=== PATIENT | female | born 1950 | race Caucasian/White ===

== ENCOUNTER 2023-09-29 12:14 | Emergency (ER) | payer MEDICARE, SELFPAY ==
[2023-09-29 12:15] VITALS: BP 188/81; PULSE 64; RESP 15; TEMP 36.4; O2SAT 100; BMI 25.2
--- NOTE | 2023-09-29 12:31 | EX.ED.GENINJ ---
HPI <RODNEY Santacruz - Last Filed: 09/29/23 12:36> History of Present Illness Chief Complaint: Bite Narrative Narrative: Patient presenting today due to a tick bite. She reports that yesterday morning she was outside setting up her solar lights. She did not take a shower again until this morning when she noticed a tick on her left upper abdomen. She tried to pull this out with her fingers. However, she reports that she thinks she left a piece behind and is concerned that she could develop Lyme's disease. She denies any fevers or chills. PFSH <RODNEY Santacruz - Last Filed: 09/29/23 12:36> PFSH Home Medications albuterol sulfate 90 mcg/actuation aerosol inhaler 1 - 2 puff inhalation Q4H PRN PRN Wheezing ##1 07/28/17 [Rx Last Taken Unknown] guaifenesin 1,200 mg tablet, extended release 12 hr 1,200 mg PO BID ##14 07/28/17 [Rx Last Taken Unknown] Allergy/AdvReac Type Severity Reaction Status Date / Time Penicillins Allergy Hives Verified 09/29/23 12:28 acetaminophen [From [place]] AdvReac Vomiting Verified 09/29/23 12:28 hydrocodone [From [place]] AdvReac Vomiting Verified 09/29/23 12:28 Social History Smoking Status: Former smoker ROS <RODNEY Santacruz - Last Filed: 09/29/23 12:36> ROS ED Constitutional Constitutional ED: Denies chills or fever(s) Cardiovascular Cardiovascular: Denies chest pain Respiratory/Chest Respiratory/Chest: Denies cough or dyspnea Gastrointestinal Gastrointestinal: Denies abdominal pain, nausea or vomiting Musculoskeletal Musculoskeletal: Denies arthralgias or myalgias Integumentary Denies rash Neurologic Neurologic: Denies weakness EXAM <RODNEY Santacruz - Last Filed: 09/29/23 12:36> Physical Exam Const Vital Signs: 09/29/23 12:15 09/29/23 12:37 Temperature 97.5 F L 97.9 F Temperature Source Temporal Pulse Rate 64 64 Respiratory Rate 15 16 Blood Pressure 188/81 H 184/78 H Blood Pressure Mean 116 113 Pulse Ox 100 100 Oxygen Delivery Method Room Air Positive well nourished, well developed and no apparent distress General Appearance ED: well developed HEENT Reports normocephalic and head/scalp atraumatic Mouth ED: Yes moist mucous membranes normal Eyes PERRL and EOMs intact bilaterally Neck full ROM and supple Chest Wall inspection of chest normal Resp normal respiratory effort and clear to auscultation bilaterally Cardio regular rate and regular rhythm GI soft to palpation, non-tender, non-distended and no masses GI Narrative: Small erythemic bite kenzie to the left upper abdomen, very small black spot in the middle of the bite kenzie which could represent a piece of the tick. Back/Spine normal ROM and normal to inspection Extremity normal to inspection and full ROM Neuro oriented x3, CN's II-XII intact bilaterally, moves all extremities, no focal motor deficits and no sensory deficits noted Sensorium / Orientation: awake and alert Psych mental status grossly normal and thought process normal <Dr. Bruce Brewer MD - Last Filed: 09/29/23 12:52> Physical Exam Const Vital Signs: 09/29/23 12:15 09/29/23 12:37 Temperature 97.5 F L 97.9 F Temperature Source Temporal Pulse Rate 64 64 Respiratory Rate 15 16 Blood Pressure 188/81 H 184/78 H Blood Pressure Mean 116 113 Pulse Ox 100 100 Oxygen Delivery Method Room Air [facility] <RODNEY Santacruz - Last Filed: 09/29/23 12:36> [facility] Narrative Medical decision making narrative: Patient presenting today due to a tick bite that likely occurred yesterday morning when she was outside. She noticed it this morning while in the shower. She is unable to tell me if the tick was engorged or not. However, given it was on her for around 24 hours she will be treated with doxycycline. There is a very small piece of the tick left behind, however, it will cause more harm to try to take this out. Encouraged that she follow-up with her PCP. She will be discharged home in stable condition and is comfortable with plan. Return instructions given. <Dr. Bruce Brewer MD - Last Filed: 09/29/23 12:52> [facility] Treatment and Re-Evaluation Narrative: I have personally performed a face to face assessment of the patient and have reviewed the MAXIMO Note. I performed a substantive portion of the visit including all aspects of the following. My mcnulty findings include: History is this morning in shower patient found a tick attached to her left upper abdomen inframammary area. She estimates it was there for may be 24 hours or so, probably received it from outside yesterday. She states she used tweezers and removed the tick, she states it looks small unknown if it was swollen or not. She states she admits that she was digging at the site trying to remove every little speck of black discoloration quite a bit and now it is a little sore but it was not before that. Exam is superficially ulcerated lesion from the patient excoriating the epidermis left upper abdominal wall. It is mildly erythematous but there is no bleeding. There is a small speck of black discoloration in the center of it. Medical Decison Making patient reassured. Cutting this small dot out is not necessary. Cleansed and dressed with bacitracin by nursing, she was given a single dose of doxycycline 200 mg for prophylaxis against Lyme which is prevalent in this area and ticks. Other additions or changes: [None] Discharge Plan Triage Chief Complaint: Bite ED Midlevel Provider: Rena Jimenez ED Provider: Bruce Brewer Dx/Rx/DC Orders Clinical Impression: Tick bite of abdomen Instructions: ED Tick Bite, Antibiotic Treatment Prescriptions: No Action albuterol sulfate 1 INHALER inhaler 1 - 2 puff INHALATION Q4H PRN PRN (Reason: Wheezing) Qty: 1 0RF guaifenesin 1,200 MG tablet 1,200 mg PO BID Qty: 14 0RF Primary Care Provider: Elijah Deleon Referrals: Elijah Deleon MD [Primary Care Provider] - 5-7 Days Activity Restrictions/Additional Instructions: Follow-up with your PCP and return for any worsening of your symptoms. Disposition Disposition: Home, Self Care Discharge Date/Time: 09/29/23 12:43
[2023-09-29 12:37] VITALS: BP 184/78; PULSE 64; RESP 16; TEMP 36.6; O2SAT 100
[2023-09-29] MEDS: Doxycycline 100 MG CAPSULE 200 MG PO (12:40)
--- OUTSIDE RECORDS SUMMARY | 2023-09-29 12:44 | XMS RPT_ITS | CCD ---
Author Name Unknown Address [address] [place] [address] Organization [facility] Care Team Providers Care Flour Inspector Name Role Phone JIM PATEL Unavailable Unavailable JIM PATEL Unavailable Unavailable JIM PATEL Unavailable Unavailable Pancho MOORE, Elijah Jiménez Primary Care Provider Allergies Allergy Classification Reported Allergen(s) Allergy Type Date of Onset Reaction(s) Facility (1 source) Acetaminophen / HYDROcodone Drug Allergy 07-18-2017 Vomiting [facility] Work Phone: (1 source) Penicillins Drug Allergy 08-19-2009 Hives [facility] Work Phone: Medications Completed/Discontinued Medications Medication Drug Class(es) Dates Sig (Normalized) Sig (Original) aspirin 81 mg delayed release oral tablet (1 source) Platelet Aggregation Inhibitor, Nonsteroidal Anti-inflammatory Drug Start: 08-19-2009 aspirin(ECOTRIN LOW STRENGTH 81 MG TAB) Take one(1) tablet daily. 0 08/19/2009 Active Problems Active Problems Problem Classification Problem Date Documented Date Episodic/Chronic Diverticulosis and diverticulitis (1 source) Diverticulosis of colon; Translations: [Diverticulosis of large intestine without perforation or abscess without bleeding] 12-19-2017 Chronic Esophageal disorders (1 source) Gastroesophageal reflux disease without esophagitis; Translations: [Gastro-esophageal reflux disease without esophagitis] Onset: 12-19-2017 12-19-2017 Chronic Hemorrhoids (1 source) Internal hemorrhoids; Translations: [Other hemorrhoids] 12-19-2017 Episodic Menopausal disorders (1 source) Primary ovarian failure; Translations: [Other primary ovarian failure] Onset: 12-19-2017 12-19-2017 Chronic Residual codes; unclassified (1 source) Family history of malignant neoplasm of gastrointestinal tract; Translations: [Family history of malignant neoplasm of digestive organs] 12-19-2017 Episodic Past or Other Problems Problem Classification Problem Date Documented Da te Episodic/Chronic Other aftercare (1 source) Drug therapy finding; Translations: [Other exterminator (current) drug therapy] Onset: 12-19-2017 12-19-2017 Episodic Other aftercare (4 sources) Patient encounter status; Translations: [Other exterminator (current) drug therapy] Onset: 12-19-2017 10-01-2019 Episodic Other bone disease and musculoskeletal deformities (1 source) Senile osteopenia; Translations: [Other specified disorders of bone density and structure, unspecified site] Onset: 01-20-2018 01-20-2018 Episodic Other skin disorders (1 source) Calcinosis cutis; 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] Onset: 12-25-2017 10-01-2019 Episodic Residual codes; unclassified (1 source) Family history of cancer of colon; Translations: [Family history of malignant neoplasm of digestive organs] Onset: 01-21-2018 10-01-2019 Episodic Screening and history of mental health and substance abuse codes (1 source) Ex-smoker; Translations: [Personal history of nicotine dependence] Onset: 08-31-2020 08-31-2020 Episodic Spondylosis; intervertebral disc disorders; other back problems (4 sources) Dorsalgia, unspecified; Translations: [Muscle spasm of back] Onset: 07-18-2017 Episodic Sprains and strains (1 source) Sprain of unspecified parts of thorax, initial encounter; Translations: [Sprain of unspecified parts of thorax, initial encounter] Onset: 07-18-2017 Episodic Encounters Encounter Date Encounter Type Care Provider Facility Start: 01-24-2023 ambulatory Lelia Lezama MA [facility] [address] [place] Procedures Date Procedure Procedure Detail Performing Clinician Start: 02-03-2018 Colonoscopy Lelia west [place] Plan of Treatment Date Care Activity Detail Author Start: 09-30-2024 LIPID SCREEN LIPID SCREEN [facility] Start: 09-11-2024 DIABETES SCREEN DIABETES SCREEN [facility] Start: 03-22-2023 Influenza vaccination INFLUENZA (#1) [facility] Start: 02-03-2023 Colonoscopy COLONOSCOPY [facility] Start: 02-03-2023 COLORECTAL CANCER SCREENING COLORECTAL CANCER SCREENING [facility] Start: 07-22-2022 ADVANCE DIRECTIVE DISCUSSION ADVANCE DIRECTIVE DISCUSSION [facility] Start: 07-22-2022 DEPRESSION ASSESSMENT DEPRESSION ASS ESSMENT [facility] Start: 12-19-2018 PNEUMOCOCCAL: 65+ (2 - PPSV23 if available, else PCV20) PNEUMOCOCCAL: 65+ (2 - PPSV23 if available, else PCV20) [facility] Start: 02-12-2002 SHINGRIX VACCINE (1 of 2) SHINGRIX V ACCINE (1 of 2) [facility] Start: 02-12-1997 COLOGUARD (FIT-DNA) COLOGUARD (FIT-D NA) [facility] Start: 02-12-[address] COLONOGRAPHY [facility] Start: 02-12-1997 FECAL OCCULT BLOOD FECAL OCCULT BLOO D [facility] Start: 02-12-1997 SIGMOIDOSCOPY SIGMOIDOSCOPY [facility] Start: 02-12-1971 Urine microalbumin profile DTAP,TDAP ,TD (1 - Tdap) [facility] Start: 02-12-1970 HEPATITIS C SCREENING HEPATITIS C SC REENING [facility] Start: 1950 COVID-19 VACCINE (#1) COVID-19 VACCI NE (#1) [facility] Immunizations Immunization Date Immunization Notes Care Provider Fa cility 10-01-2019 influenza, high dose seasonal, preservative-free Lelia Lezama MA [facility] 12-19-2017 pneumococcal conjuga te vaccine, 13 valent Lelia Lezama MA [facility] Work Phone: Payers Date Payer Category Payer Private Health Insurance AETNA A ETNA MEDICARE SUPPLEMENT [id number] 2021-Present [phone] [address] [address] [place] [address] Indemnity [id number] 2017 Medicare MEDICARE MEDICAR E A AND B [id number] 2017-Present [phone] [place] [address] Medicare [id number] Medicare [id number] Social History Date Type Detail Facility Start: 02-03-2018 Tobacco smoking stat us NHIS Ex-smoker [facility] End: 02-04-1988 History of tobacco use Current smoker [facility] End: 02-04-1988 History of tobacco use Cigarette Smoker [facility] Start: 02-03-2018 End: 09-11-2021 Cigarettes smoked current (pack per day) - Reported 2 [facility] Start: 02-03-2018 Tobacco use and exposure Smoke less tobacco non-user [facility] Start: 09-11-2021 Alcohol intake Current drinke r of alcohol (finding) [facility] Start: 05-13-2013 Tobacco Comment Quit 1984 [facility] Start: 02-03-2018 Alcohol Comment couple times a week [facility] Start: 1950 Sex Assigned At Not on file [facility] Clinical Note 01-24-2023 Note Date & Type Note Facility 01-24-2023 Note Patient Outreach (FLAQUITA TNBIRDIE) MAUREEN BRUNO ([id number]) 1950 F Date Time Provider Department 01/24/23 LELIA LEZAMA During your visit today, we recorded the following information about you: Lelia Lezama MA 01/24/2023 1:18 PM Signed POPULATION HEALTH NAVIGATION OUTREACH Action/I [facility] [employer] MESSAGE SENT ANNUAL MEDICARE WELLNESS ADVANCE DIRECTIVE DISCUSSION Never done COLORECTAL CANCER SCREENING Patient Identified by Name and : NO Outreach Outcome/Action Unable to reach patient: Left message [employer] message sent Did you use a PCP flex slot to schedule this appointment? N/A Reason for Outreach Care Gap or Scheduling/Wellness visits Payer: Payor: AETNA / Plan: AETNA MEDICARE SUPPLEMENT / Product Type: Indemnity / Care Gap Reviewed:: Annual Wellness visit Colorectal Cancer Screening Reminder: Reminder note to check Health Maintenance for items below Health Maintenance items due: COVID-19 VACCINE(1) Never done HEPATITIS C SCREENING Never done DTAP,TDAP,TD(1 - Tdap) Never done SHINGRIX VACCINE(1 of 2) Never done PNEUMOCOCCAL: 65+(2 - PPSV23 if available, else PCV20) due on 12/19/2018 ADVANCE DIRECTIVE DISCUSSION Never done DEPRESSION ASSESSMENT Never done COLORECTAL CANCER SCREENING due on 02/03/2023 Navigation Signature: Lelia Lezama MA January 24, 2023 8:05 AM Allergies As of Date: 01/24/2023 Noted Allergy Reaction PENICILLINS 08/19/2009 4 - Hives [place]CO (HYDROCODONE-ACETAMINOPHEN) 07/18/2017 11 - Vomiting Date Reviewed: 09/11/2021 Reviewed by: Aranza Valencia LPN - Fully Assessed Reason for Visit: Population Health Navigation Outreach [3910] Cmt: MARCEL BACON PCSA Prescriptions as of 01/24/2023 - cyclobenzaprine (FLEXERIL) 10 mg tablet Take 1 tablet by mouth three times daily as needed for Muscle Spasm (Start by taking 1/2 tablet as needed). - hydrocortisone (ANUSOL-HC) 2.5 % rectal cream by RECTAL route twice daily. - Ibuprofen 200 mg cap Take 1-2 capsules by mouth as needed. - omeprazole (PRILOSEC) 20 mg capsule Take 1 capsule by mouth daily before breakfast. - aspirin(ECOTRIN LOW STRENGTH 81 MG TAB) Take one(1) tablet daily. 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 Author Type: Donor Specialist Type: Progress Notes Filed: 01/24/2023 1:18 PM Note Text: POPULATION HEALTH NAVIGATION OUTREACH Action/FYI LVM MYCHART MESSAGE SENT ANNUAL MEDICARE WELLNESS ADVANCE DIRECTIVE DISCUSSION Never done COLORECTAL CANCER SCREENING Patient Identified by Name and : NO Outreach Outcome/Action Unable to reach patient: Left message MyChart message sent Did you use a PCP flex slot to schedule this appointment? N/A Reason for Outreach Care Gap or Scheduling/Wellness visits Payer: Payor: AETNA / Plan: AETNA MEDICARE SUPPLEMENT / Product Type: Indemnity / Care Gap Reviewed:: Annual Wellness visit Colorectal Cancer Screening Reminder: Reminder note to check Health Maintenance for items below Health Maintenance items due: COVID-19 VACCINE(1) Never done HEPATITIS C SCREENING Never done DTAP,TDAP,TD(1 - Tdap) Never done SHINGRIX VACCINE(1 of 2) Never done PNEUMOCOCCAL: 65+(2 - PPSV23 if available, else PCV20) due on 12/19/2018 ADVANCE DIRECTIVE DISCUSSION Never done DEPRESSION ASSESSMENT Never done COLORECTAL CANCER SCREENING due on 02/03/2023 Navigation Signature: Lelia Lezama MA January 24, 2023 8:05 AM [facility] History of Present illness Narrative 01-24-2023 Lelia Lezama MA - 01/24/2023 8:05 AM EDT Note Date & Type Note Facility 01-24-2023 History of Presen t illness Narrative POPULATION HEALTH NAVIGATION OUTREACH Action/FYI LVM MYCHART MESSAGE SENT ANNUAL MEDICARE WELLNESS ADVANCE DIRECTIVE DISCUSSION Never done COLORECTAL CANCER SCREENING Patient Identified by Name and : NO Outreach Outcome/Action Unable to reach patient: Left message MyChart message sent Did you use a PCP flex slot to schedule this appointment? N/A Reason for Outreach Care Gap or Scheduling/Wellness visits Payer: Payor: AETNA / Plan: AETNA MEDICARE SUPPLEMENT / Product Type: Indemnity / Care Gap Reviewed:: Annual Wellness visit Colorectal Cancer Screening Reminder: Reminder note to check Health Maintenance for items below Health Maintenance items due: COVID-19 VACCINE(1) Never done HEPATITIS C SCREENING Never done DTAP,TDAP,TD(1 - Tdap) Never done SHINGRIX VACCINE(1 of 2) Never done PNEUMOCOCCAL: 65+(2 - PPSV23 if available, else PCV20) due on 12/19/2018 ADVANCE DIRECTIVE DISCUSSION Never done DEPRESSION ASSESSMENT Never done COLORECTAL CANCER SCREENING due on 02/03/2023 Navigation Signature: Lelia Lezama MA January 24, 2023 8:05 AM documented in this encounter [facility] Summary Purpose Family History No Family History Records FoundNo Family History Records Found Advance Directives No Advanced Directives Records FoundNo Advanced Directives Records Found Additional Source Comments (unrecognized sect ion and content) No Status Records Found INFORMATION SOURCE (unrecogn ized section and content) DATE CREATED AUTHOR AUTHOR'S ORGANIZ ATION 01/25/2023 [facility] Source Comments (unrecognize d section and content) In the event this informatio n is protected by the Federal Confidentiality of Alcohol and Drug Abuse Patient Records regulations: The Federal rules restrict any use of the information to criminally investigate or prosecute any alcohol or drug abuse patient.[facility] Reason for Visit (unrecogniz ed section and content) Care Teams (unrecognized sec tion and content) FOR RECORDS PERTAINING TO PATIENTS WHO ARE OR HAVE BEEN ENROLLED IN A CHEMICAL DEPENDENCY/SUBSTANCEABUSE PROGRAM, SOME INFORMATION MAY BE OMITTED. This clinical summary was aggregated from multiple sources. Caution should be exercised in using it in the provision of clinical care. This summary normalizes information from multiple sources, and as a consequence, information in this document may materially change the coding, format and clinical context of patient data. In addition, data may be omitted in some cases. CLINICAL DECISIONS SHOULD BE BASED ON THE PRIMARY CLINICAL RECORDS. [facility] [employer] [facility]. provides no warranty or guarantee of the accuracy or completeness of information in this document.
== END 2023-09-29 12:43 | disposition home or self-care (01) ==
LOC: ED 12:42
PROVIDERS: Emergency Provider Emergency Medicine; PCP Family Medicine; Visit Provider Emergency Medicine
DX: S30.861A Insect bite (nonvenomous) of abdominal wall, initial encounter (principal); Z87.891 Personal history of nicotine dependence; W57.XXXA Bitten or stung by nonvenomous insect and other nonvenomous arthropods, initial encounter
CPT/HCPCS: 99283

== ENCOUNTER → 2025-02-04 | Outpatient (CLI) | payer MEDICARE, SELFPAY ==
--- NOTE | 2025-02-04 16:59 | CT_ITS ---
PROCEDURE: ORB SELLA POST FOSSA EAR W/WO 02/04/2025 REASON FOR EXAM: CHRONIC DACRYOCYSTITIS OF R LACRIMAL PASSAGE TECHNIQUE: ORB SELLA POST FOSSA EAR W/WO CONTRAST: Isovue 370 VOLUME: 100 mL One or more dose reduction techniques were used (e.g., Automated exposure control, adjustment of the mA and/or kV according to patient size, use of iterative reconstruction technique). RADIATION DOSE SUMMARY: CTDlvol: 29.38 mGy DLP: 569.49 mGycm COMPARISON: None FINDINGS: Globes: Unremarkable Extraocular Muscles: Unremarkable Orbits: There is a 9.7 mm x 12.6 mm x 8.5 mm cystic nodule in the anterior inferior medial aspect of the right orbit. This abuts the nasal bone medially. Lacrimal Glands: Unremarkable Bones: Unremarkable Other: Visualized paranasal sinuses and intracranial structures: Opacification of the left sphenoid sinus and partial opacification of the ethmoid sinuses. CT/Orb Sella Post Fossa Ear W/WO IMPRESSION: 12.6 mm x 8.5 mm x 9.7 mm cystic nodule in the anterior inferior medial aspect of the right orbit as described. Sinusitis. Reading Location: [place] [address]
--- NOTE | 2025-02-04 16:59 | CT_ITS ---
PROCEDURE: SINUS/FACIAL BONE W/WO CONTRAS 02/04/2025 REASON FOR EXAM: CHRONIC DACRYOCYSTITIS OF R LACRIMAL PASSAGE TECHNIQUE: SINUS/FACIAL BONE W/WO CONTRAS Coronal and Sagittal reconstruction series were provided. CONTRAST: Isovue-300 VOLUME: 100 mL One or more dose reduction techniques were used (e.g., Automated exposure control, adjustment of the mA and/or kV according to patient size, use of iterative reconstruction technique). RADIATION DOSE SUMMARY: CTDlvol: 29.38 mGy DLP: 1646.22 mGycm COMPARISON: None FINDINGS: Frontal: Unremarkable Ethmoid: Partial opacification of the ethmoid sinuses. Sphenoid: There is opacification of the left sphenoid sinus. Maxillary: Unremarkable Turbinates: Unremarkable Nasal Septum: Unremarkable Mastoids/Middle Ears: Unremarkable There is evidence of a 9.5 mm by 8.9 mm predominantly cystic structure seen in the inferior medial aspect of the anterior portion of the right orbit adjacent to the nasal bone. CT/Sinus/Facial Bone W/WO Contras IMPRESSION: 9.5 mm x 8.9 mm x 12.3 mm cystic structure along the anterior inferior medial a spect of the right orbit adjacent to the right nasal bone. Opacification of the left sphenoid sinus and partial opacification of the ethmo id sinuses. Reading Location: [place] [address]
== END | disposition home or self-care (01) ==
PROVIDERS: PCP Family Medicine
DX: H04.411 Chronic dacryocystitis of right lacrimal passage (principal)
CPT/HCPCS: 70482; 70488; Q9967; A4216